=== PATIENT | male | born 1990 | race Caucasian/White ===

== ENCOUNTER 2016-05-14 06:19 | Emergency (ER) | payer SELFPAY ==
[2016-05-14 07:40] LABS: Basophils % (Auto) 0.7 % (0.0-1.8); Hematocrit 49.8 % (35.5-45.6); Hemoglobin 16.8 gm/dl (11.8-15.2); Mean Corpuscular HGB Conc 34 % (32-34); Mean Corpuscular Hemoglobin 32 pg (28-32); Mean Corpuscular Volume 95 fl (84-94); Platelet Count 222 K/mm3 (140-440); Red Blood Count 5.25 M/mm3 (3.65-5.03); Red Cell Distribution Width 13.2 % (13.2-15.2); White Blood Count 8.7 K/mm3 (4.5-11.0)
[2016-05-14 07:51] LABS: Alanine Aminotransferase 22 units/L (7-56); Albumin 4.8 g/dL (3.9-5); Albumin/Globulin Ratio 1.5 %; Alkaline Phosphatase 98 units/L (35-129); Anion Gap 21 mmol/L; Bilirubin,Total 0.4 mg/dL (0.1-1.2); Blood Urea Nitrogen 10 mg/dL (9-20); Calcium 9.1 mg/dL (8.4-10.2); Carbon Dioxide 26 mmol/L (22-30); Chloride 101.2 mmol/L (98-107); Glucose 83 mg/dL (75-100); Lipase 44 units/L (13-60); Potassium 4.7 mmol/L (3.6-5.0); Sodium 143 mmol/L (137-145)
[2016-05-14 08:31] LABS: Bilirubin,Urine NEG (Negative); Blood,Urine SM (Negative); Ketones,Urine TR mg/dL (Negative); Leukocyte Esterase,Urine NEG (Negative); Mucus,Urine 3+ /HPF; Nitrite,Urine NEG (Negative); Protein,Urine <15 mg/dL mg/dL (Negative); Urobilinogen,Urine < 2.0 mg/dL (<2.0)
[2016-05-14] MEDS ORDERED: ULTRAM PO ONE (14:48)
[2016-05-14] MEDS ORDERED: ZOFRAN ODT PO ONE (14:48)
--- NOTE | 2016-05-14 15:08 | Emergency Department Report ---
ED N/V/D HPI - General Chief complaint: Abdominal Pain Stated complaint: SPENSER,VOMITING UP BLOOD, BODY PAIN Time Seen by Provider: 05/14/16 14:32 Source: patient Mode of arrival: Ambulatory Limitations: No Limitations - History of Present Illness Initial comments: 25 yo male with a Past medical history no previous abdominal surgeries presents to the hospital complaining of abdominal pain, nausea, and vomiting. Patient states he has had right lower rib pain that is aching and constant rate is 7/10 in intensity for the past 3 weeks. No aggravating or alleviating factors reported. For the past week patient has had nausea and vomiting. Patient complains of intermittent blood streaks in his vomitus. He denies melena, hematochezia, diarrhea, fevers, recent travel, or sick contacts. Last vomiting episode 8 AM this morning patient has been able to eat or drink since. He denies any current nausea. - Related Data Previous Rx's Medication Instructions Recorded Last Taken Type Azithromycin [Zithromax Z-STAR] 250 mg PO DAILY #6 tablet 03/29/16 Unknown Rx Lansoprazole [Prevacid] 15 mg PO BID #60 cap 05/14/16 Unknown Rx Promethazine [Phenergan TAB] 25 mg PO Q6HR PRN #30 tab 05/14/16 Unknown Rx traMADol [Ultram 50 MG tab] 50 mg PO Q6HR PRN #30 tablet 05/14/16 Unknown Rx Allergies Allergy/AdvReac Type Severity Reaction Status Date / Time No Known Allergies Allergy Verified 02/20/14 21:30 ED Review of Systems ROS: Stated complaint: SPENSER,VOMITING UP BLOOD, BODY PAIN Other details as noted in HPI Comment: All other systems reviewed and negative Other: Constitutional: No fevers chills Eyes: No eye pain visual changes ENT: No ear pain or throat pain Neck: Denies pain Respiratory: Denies cough wheezing shortness of breath Cardiovascular: Denies chest pain, palpitations, syncope GI: As per HPI : Denies dysuria Musculoskeletal: Denies back pain Skin: Denies rash, lesions, erythema Neurologic: Denies headache, numbness, weakness Psychiatric: Denies suicidal ideation, hallucinations Hematological/lymphatic: Denies easy bruising, lymphadenopathy ED Past Medical Hx - Past Medical History Previous Medical History?: No - Surgical History Past Surgical History?: No - Social History Smoking Status: Current Every Day Smoker Substance Use Type: Alcohol - Medications Home Medications: Home Medications Medication Instructions Recorded Confirmed Last Taken Type Azithromycin [Zithromax Z-STAR] 250 mg PO DAILY #6 tablet 03/29/16 Unknown Rx Lansoprazole [Prevacid] 15 mg PO BID #60 cap 05/14/16 Unknown Rx Promethazine [Phenergan TAB] 25 mg PO Q6HR PRN #30 tab 05/14/16 Unknown Rx traMADol [Ultram 50 MG tab] 50 mg PO Q6HR PRN #30 tablet 05/14/16 Unknown Rx ED Physical Exam - General Limitations: No Limitations - Other Other exam information: General: No limitations, patient is alert in no acute distress Head exam: Atraumatic, normocephalic Eyes exam: Normal appearance, pupils equal reactive to light, extraocular movements intact ENT: Moist mucous membrane, normal oropharynx Neck exam: Normal inspection, full range of motion, no meningismus nontender Respiratory exam: Clear to auscultation bilateral, no wheezes, rales, crackles. Mild right lower anterior rib tenderness Cardiovascular: Normal rate and rhythm, normal heart sounds Abdomen: Soft, nondistended, and nontender, with normal bowel sounds, no rebound, or guarding Extremity: Full range of motion normal inspection no deformity Back: Normal Inspection, full range of motion, no tenderness Neurologic: Alert, oriented x3, cranial nerves intact, no motor or sensory deficit Psychiatric: normal affect, normal mood Skin: Warm, dry, intact ED Course Vital Signs 05/14/16 06:37 Temperature 97.8 F Pulse Rate 84 Respiratory 18 Rate Blood Pressure 126/84 O2 Sat by Pulse 100 Oximetry - Reevaluation(s) Reevaluation #1: 05/14/16 15:07 Patient received Zofran and tramadol and tolerated by mouth ED Medical Decision Making - Lab Data Result diagrams: 05/14/16 07:12 05/14/16 07:12 Lab Results 05/14/16 05/14/16 05/14/16 Range/Units 07:12 07:12 07:25 WBC 8.7 (4.5-11.0) K/mm3 RBC 5.25 H (3.65-5.03) M/mm3 Hgb 16.8 H (11.8-15.2) gm/dl Hct 49.8 H (35.5-45.6) % MCV 95 H (84-94) fl MCH 32 (28-32) pg MCHC 34 (32-34) % RDW 13.2 (13.2-15.2) % Plt Count 222 (140-440) K/mm3 Lymph % (Auto) 32.9 (13.4-35.0) % [place] % (Auto) 5.3 (0.0-7.3) % Eos % (Auto) 1.0 (0.0-4.3) % Baso % (Auto) 0.7 (0.0-1.8) % Lymph # 2.9 (1.2-5.4) K/mm3 Craven # 0.5 (0.0-0.8) K/mm3 Eos # 0.1 (0.0-0.4) K/mm3 Baso # 0.1 (0.0-0.1) K/mm3 Seg Neutrophils % 60.1 (40.0-70.0) % Seg Neutrophils # 5.2 (1.8-7.7) K/mm3 Carbon Dioxide 26 (22-30) mmol/L BUN 10 (9-20) mg/dL Creatinine 1.0 (0.8-1.5) mg/dL Estimated GFR > 60 ml/min BUN/Creatinine Ratio 10.00 % Glucose 83 (75-100) mg/dL Calcium 9.1 (8.4-10.2) mg/dL Total Bilirubin 0.4 (0.1-1.2) mg/dL AST 26 (5-40) units/L ALT 22 (7-56) units/L Alkaline Phosphatase 98 (35-129) units/L Total Protein 8.0 (6.3-8.2) g/dL Albumin 4.8 (3.9-5) g/dL Albumin/Globulin Ratio 1.5 % Lipase 44 (13-60) units/L Urine Color Yellow (Yellow) Urine Turbidity Clear (Clear) Urine pH 5.0 (5.0-7.0) Ur Specific Ridge 1.019 (1.003-1.030) Urine Protein <15 mg/dl (Negative) mg/dL Urine Glucose (UA) Neg (Negative) mg/dL Urine Ketones Tr (Negative) mg/dL Urine Blood Sm (Negative) Urine Nitrite Neg (Negative) Urine Bilirubin Neg (Negative) Urine Urobilinogen < 2.0 (<2.0) mg/dL Ur Leukocyte Esterase Neg (Negative) Urine WBC (Auto) 6.0 (0.0-6.0) /HPF Urine RBC (Auto) 4.0 (0.0-6.0) /HPF U Epithel Cells (Auto) < 1.0 (0-13.0) /HPF Hyaline Casts 6 /LPF Urine Mucus 3+ /HPF Sodium 143, potassium 4.7, chloride 101.2 and and 21 - Medical Decision Making Plan to discharge patient home on tramadol, Phenergan, and omeprazole. Patient refused and declined rectal however, no signs of anemia, active bleeding, or cardiac instability. Follow-up will be encouraged - Differential Diagnosis gastritis, gastroenteritis, hepatitis, biliary colic, Nika-Child PUD Critical Care Time: No Critical care attestation.: If time is entered above; I have spent that time in minutes in the direct care of this critically ill patient, excluding procedure time. ED Disposition Clinical Impression: Gastritis Qualifiers: Gastritis type: unspecified gastritis Chronicity: acute Gastritis bleeding: presence of bleeding unspecified Qualified Code(s): K29.00 - Acute gastritis without bleeding Vomiting Qualifiers: Vomiting type: hematemesis Nausea presence: with nausea Qualified Code(s): K92.0 - Hematemesis; R11.0 - Nausea Disposition: DISCHARGED TO HOME OR SELFCARE Is pt being admited?: No Does the pt Need Aspirin: No Condition: Stable Instructions: Gastritis (ED), Acute Nausea and Vomiting (ED) Additional Instructions: Take the medication as prescribed. Follow-up with the clinic provided. Return if symptoms worsen. Prescriptions: Lansoprazole [Prevacid] 15 mg PO BID #60 cap Promethazine [Phenergan TAB] 25 mg PO Q6HR PRN #30 tab PRN Reason: Nausea traMADol [Ultram 50 MG tab] 50 mg PO Q6HR PRN #30 tablet PRN Reason: Pain Referrals: PRIMARY CARE, [Primary Care Provider] - 3-5 Days [facility] [Provider Group] - 3-5 Days Time of Disposition: 15:10
[2016-05-14 15:34] VITALS: BP 126/80
== END 2016-05-14 15:33 | disposition home or self-care (01) ==
LOC: ED 06:19
DX: K29.00 Acute gastritis without bleeding (principal); K92.0 Hematemesis; F17.200 Nicotine dependence, unspecified, uncomplicated
CPT/HCPCS: 36415; 80053; 81001; 83690; 85025; 99283; Q0162

== ENCOUNTER 2016-11-15 13:20 | Emergency (ER) | payer SELFPAY ==
[2016-11-15] MEDS ORDERED: NACL 0.9% 1000 ML 1,000 ML IV ONE (15:07)
[2016-11-15 15:38] LABS: Basophils % (Auto) 0.4 % (0.0-1.8); Eosinophils % (Auto) 0.6 % (0.0-4.3); Hematocrit 45.5 % (35.5-45.6); Hemoglobin 15.7 gm/dl (11.8-15.2); Mean Corpuscular HGB Conc 35 % (32-34); Mean Corpuscular Hemoglobin 33 pg (28-32); Mean Corpuscular Volume 96 fl (84-94); Platelet Count 215 K/mm3 (140-440); Red Blood Count 4.73 M/mm3 (3.65-5.03); Red Cell Distribution Width 13.8 % (13.2-15.2); White Blood Count 8.8 K/mm3 (4.5-11.0)
[2016-11-15 15:48] LABS: INR 1.13 (0.87-1.13)
[2016-11-15 15:55] LABS: Alanine Aminotransferase 27 units/L (7-56); Albumin 4.5 g/dL (3.9-5); Albumin/Globulin Ratio 1.4 %; Alkaline Phosphatase 77 units/L (35-129); Anion Gap 20 mmol/L; BUN/Creatinine Ratio 13.33; Blood Urea Nitrogen 12 mg/dL (9-20); Calcium 9.9 mg/dL (8.4-10.2); Carbon Dioxide 27 mmol/L (22-30); Chloride 100.3 mmol/L (98-107); Glucose 86 mg/dL (75-100); Lipase 34 units/L (13-60); Potassium 4.5 mmol/L (3.6-5.0); Sodium 143 mmol/L (137-145); Total Protein 7.8 g/dL (6.3-8.2)
--- NOTE | 2016-11-15 22:26 | Cat Scan Report ---
FINAL REPORT EXAM: CT HEAD/BRAIN WO CON HISTORY: head injury slipped and fell backwards TECHNIQUE: CT imaging acquired through the head without intravenous contrast. Transaxial reformations are provided. PRIORS: None. FINDINGS: The ventricles, cisterns and sulci are normal. There is confluent white matter disease in the anterior right temporal and right frontal lobes. No intraparenchymal or extra-axial mass, hemorrhage, or mass effect. Hitchcock and white-matter differentiation is normal. Normal spherical shape of the globes. Paranasal sinuses and mastoid air cells are clear. No skull or facial fracture visualized. IMPRESSION: No acute intracranial hemorrhage or mass effect. Right frontal and temporal white matter disease is concerning for infectious or vascular insult to include herpes encephalitis and CADASIL, among other etiologies. Consider empiric antiviral treatment as warranted. Follow-up neurology consultation and MRI with contrast are recommended. Dr. Esteban discussed findings with Dr. Taylor at [address] [employer] [employer] following the examination.
[2016-11-15 23:21] VITALS: BP 152/89
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
== END 2016-11-16 00:21 | disposition home or self-care (01) ==
LOC: ED 13:20
DX: K29.70 Gastritis, unspecified, without bleeding (principal); R51 Headache; F17.210 Nicotine dependence, cigarettes, uncomplicated
CPT/HCPCS: 36415; 70450; 80053; 83690; 85025; 85610; 85730; 86850; 86900; 86901; 93005; 93010; 99284

== ENCOUNTER 2017-12-02 02:46 | Emergency (ER) | payer SELFPAY | END 2017-12-02 02:48 | disposition left against medical advice (07) | LOC: ED 02:46 | DX: Z00.8 Encounter for other general examination (principal); Z53.21 Procedure and treatment not carried out due to patient leaving prior to being seen by health care provider ==

== ENCOUNTER 2021-02-23 09:46 | Emergency (ER) | payer SELFPAY ==
[2021-02-23 10:55] LABS: Amphetamine Screen,Urine Negative; Benzodiazepines Screen,Urine Negative; Cannabinoid Screen,Urine Negative; Cocaine Screen,Urine Negative; Methadone Screen,Urine Negative; Opiate Screen,Urine Negative
[2021-02-23 11:19] LABS: Basophils % (Auto) 0.9 % (0.0-1.8); Eosinophils % (Auto) 0.9 % (0.0-4.3); Hematocrit 47.4 % (35.5-45.6); Hemoglobin 16.1 gm/dl (11.8-15.2); Lymphocytes % (Auto) 21.8 % (13.4-35.0); Mean Corpuscular HGB Conc 34 % (32-34); Mean Corpuscular Volume 99 fl (84-94); Monocytes # (Auto) 0.4 K/mm3 (0.0-0.8); Platelet Count 170 K/mm3 (140-440); Red Blood Count 4.79 M/mm3 (3.65-5.03); Red Cell Distribution Width 13.3 % (13.2-15.2)
--- NOTE | 2021-02-23 11:21 | XRay Report ---
CHEST PA AND LATERAL VIEWS INDICATION: Chest Pain. COMPARISON: 02/21/2014 FINDINGS: Support devices: None. Heart: Within normal limits. Lungs/Pleura: No acute pulmonary or pleural findings. IMPRESSION: 1. No acute findings. Signer Name: Ren Fry MD Signed: 02/23/2021 11:17 AM Workstation Name: [id number]
[2021-02-23 11:26] LABS: Alanine Aminotransferase 53 units/L (7-56); Albumin 4.3 g/dL (3.9-5); BUN/Creatinine Ratio 4; Blood Urea Nitrogen 4 mg/dL (9-20); Calcium 9.3 mg/dL (8.4-10.2); Hemolysis Index 13
--- NOTE | 2021-02-23 11:57 | Emergency Department Report ---
ED Chest Pain HPI - General Chief Complaint: Chest Pain Stated Complaint: CHEST PAIN PUI?: Yes Time Seen by Provider: 02/23/21 10:03 Source: patient Mode of arrival: Ambulatory Limitations: No Limitations - History of Present Illness Initial Comments: The patient was evaluated in the emergency department for symptoms described in the history of present illness. He/she was evaluated in the context of the global COVID-19 pandemic, which necessitated consideration that the patient might be at risk for infection with the virus that causes COVID-19. Institutional protocols and algorithms that pertain to the evaluation of pat ients at risk for COVID-19 are in a state of rapid change based on information released by regulatory bodies including the CDC and federal and state organizations. These policies and algorithms were followed during the patient's care in the emergency department. Please note that these policies, procedures and recommendations changed on a rapid basis. 30-year-old male presents to the emergency room complaining of vomiting x2 days. Patient states he had chest pain that started last night and a dry cough. He reports his pain is midsternal and epigastric. He admits to a dry cough but denies any sick contact. Patient states that the chest pain started after he is has been vomiting. He has tested Covid -3 weeks ago but is not vaccinated. He denies any diarrhea no past medical history no family history of any cardiac deaths does not smoke weed does only social drinking and smokes occasionally. Patient states that he had chest pain that started 1 hour ago last vomited last night. -: Last night Onset: other (After vomiting) Pain Location: substernal, left chest, right chest Pain Radiation: none Severity: mild Quality: aching Consistency: constant Improves With: nothing Worsens With: other (Vomiting) re: nausea, vomting Other Symptoms: cough Treatments Prior to Arrival: none Aspirin use within the Past 7 Days: (0) No - Related Data Previous Rx's Medication Instructions Recorded Last Taken Type Acyclovir [Zovirax Tab] 800 mg PO Q12H #14 tab 11/16/16 Unknown Rx Benzonatate [Tessalon Perles] 100 mg PO Q8HR #20 capsule 11/16/16 Unknown Rx Omeprazole 40 mg PO DAILY #30 capsule. 11/16/16 Unknown Rx Allergies Allergy/AdvReac Type Severity Reaction Status Date / Time No Known Allergies Allergy Verified 02/23/21 09:53 Heart Score - HEART Score History: Slightly suspicious EKG: Normal Age: < 45 Risk factors: No known risk factors Troponin: < normal limit HEART Score: 0 - EKG Read Time Time EKG Completed: 10:10 EKG Read Time: 10:15 ED Review of Systems ROS: Stated complaint: CHEST PAIN Other details as noted in HPI ED Past Medical Hx - Social History Smoking Status: Current Every Day Smoker Substance Use Type: Alcohol, Non Opiate Pain - Medications Home Medications: Home Medications Medication Instructions Recorded Confirmed Last Taken Type Acyclovir [Zovirax Tab] 800 mg PO Q12H #14 tab 11/16/16 Unknown Rx Benzonatate [Tessalon Perles] 100 mg PO Q8HR #20 capsule 11/16/16 Unknown Rx Omeprazole 40 mg PO DAILY #30 capsule. 11/16/16 Unknown Rx ED Physical Exam - General Limitations: No Limitations General appearance: alert, in no apparent distress - Head Head exam: Present: atraumatic, normocephalic - Eye Eye exam: Present: normal appearance - ENT ENT exam: Present: mucous membranes moist - Neck Neck exam: Present: normal inspection - Respiratory Respiratory exam: Present: normal lung sounds bilaterally. Absent: respiratory distress - Cardiovascular Cardiovascular Exam: Present: regular rate, normal rhythm. Absent: systolic murmur, diastolic murmur, rubs, gallop - GI/Abdominal GI/Abdominal exam: Present: soft, tenderness (Epigastric, midsternal), normal bowel sounds - Rectal Rectal exam: Present: deferred - Extremities Exam Extremities exam: Present: normal inspection - Back Exam Back exam: Present: normal inspection - Neurological Exam Neurological exam: Present: alert, oriented X3 - Psychiatric Psychiatric exam: Present: normal affect, normal mood - Skin Skin exam: Present: warm, dry, intact, normal color. Absent: rash ED Course Vital Signs 02/23/21 02/23/21 02/23/21 10:07 12:14 12:15 Temperature 98.1 F Pulse Rate 93 H 78 72 Respiratory 16 16 Rate Blood Pressure 151/99 Blood Pressure 151/99 [Left] O2 Sat by Pulse 97 98 99 Oximetry MANGO score - Mango Score Age > 65: (0) No Aspirin use within the Past 7 Days: (0) No 3 or more CAD Risk Factors: (0) No 2 or more Angina events in past 24 hrs: (0) No Known CAD with more than 50% Stenosis: (0) No Elevated Cardiac Markers: (0) No ST Deviation Greater than 0.5mm: (0) No MANGO Score: 0 ED Medical Decision Making - Lab Data Result diagrams: 02/23/21 10:44 02/23/21 10:44 Laboratory Results - last 72 hr 02/23/21 02/23/21 02/23/21 10:44 10:44 Unknown WBC 4.4 L RBC 4.79 Hgb 16.1 H Hct 47.4 H MCV 99 H MCH 34 H MCHC 34 RDW 13.3 Plt Count 170 Lymph % (Auto) 21.8 [place] % (Auto) 9.0 H Eos % (Auto) 0.9 Baso % (Auto) 0.9 Lymph # (Auto) 1.0 L [place] # (Auto) 0.4 Eos # (Auto) 0.0 Baso # (Auto) 0.0 Seg Neutrophils % 67.4 Seg Neutrophils # 3.0 Sodium 140 Potassium 4.8 Chloride 100.3 Carbon Dioxide 26 Anion Gap 19 BUN 4 L Creatinine 0.9 Estimated GFR > 60 BUN/Creatinine Ratio 4 Glucose 101 H Calcium 9.3 Total Bilirubin 0.60 AST 70 H ALT 53 Alkaline Phosphatase 104 Troponin T < 0.010 Total Protein 7.3 Albumin 4.3 Albumin/Globulin Ratio 1.4 Lipase 102 H Urine Opiates Screen Negative Urine Methadone Screen Negative Ur Barbiturates Screen Negative Ur Phencyclidine Scrn Negative Ur Amphetamines Screen Negative U Benzodiazepines Scrn Negative Urine Cocaine Screen Negative U Marijuana (THC) Screen Negative Drugs of Abuse Note Disclamer - Medical Decision Making 30-year-old male presents to the emergency room complaining of vomiting x2 days. Patient states he had chest pain that started last night and a dry cough. He reports his pain is midsternal and epigastric. He admits to a dry cough but denies any sick contact. Patient states that the chest pain started after he is has been vomiting. He has tested Covid -3 weeks ago but is not vaccinated. He denies any diarrhea no past medical history no family history of any cardiac deaths does not smoke weed does only social drinking and smokes occasionally. Patient states that he had chest pain that started 1 hour ago last vomited last night. CBC CMP EKG chest x-ray lipase UDS troponin. Lipase came back elevated 102 with the elevated AST which is very common in alcoholism. Discussed with patient my findings and suggest that he drinks more than just occasionally. Patient does admit at that time that he drinks daily. Also discussed with patient that he needs to decrease his alcohol consumption increase his fluid intake. Patient was given 1 L of fluid and Zofran. Patient is asking for a work excuse. Critical care attestation.: If time is entered above; I have spent that time in minutes in the direct care of this critically ill patient, excluding procedure time. ED Disposition Clinical Impression: Acute alcoholic pancreatitis Disposition: 01 HOME / SELF CARE / HOMELESS Is pt being admited?: No Does the pt Need Aspirin: No Condition: Stable Instructions: Acute Pancreatitis, [id number] Additional Instructions: Please decrease your alcohol consumption as this is what is causing your epigastric pain. It also causes nausea and vomiting. You need to increase your fluid intake. Referrals: PRIMARY CARE, [Primary Care Provider] - 3-5 Days [facility] [Provider Group] - 3-5 Days Forms: Work/School Release Form(ED) Time of Disposition: 12:57
[2021-02-23] MEDS ORDERED: ONDANSETRON 4 MG/2 ML INJ IV ONE (11:58)
[2021-02-23] MEDS ORDERED: SODIUM CHLORIDE 0.9% 1000 ML 1,000 ML IV ONE (11:58)
[2021-02-23 12:15] VITALS: BP 151/99
--- NOTE | 2021-02-23 17:50 | Electrocardiograph Report ---
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
== END 2021-02-23 13:32 | disposition home or self-care (01) ==
LOC: ED 09:46
DX: K85.20 Alcohol induced acute pancreatitis without necrosis or infection (principal); F17.200 Nicotine dependence, unspecified, uncomplicated
CPT/HCPCS: 36415; 71046; 80053; 80307; 83690; 84484; 85025; 93005; 96361; 96374; 99284; J2405; J7030

== ENCOUNTER 2022-01-06 17:35 | Emergency (ER) | payer SELFPAY ==
[2022-01-06 18:13] VITALS: BP 142/91
[2022-01-06] MEDS ORDERED: TETANUS,DIPH,PERTUSS(ACELL) VACCINE 0.5 ML SYRINGE IM ONE (19:40)
[2022-01-06] MEDS ORDERED: oxyCODONE /ACETAMINOPHEN 5-325MG TAB PO ONE (19:40)
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
[2022-01-06] MEDS ORDERED: SODIUM CHLORIDE 0.9% 1000 ML 1,000 ML IV ONE (20:39)
== END 2022-01-06 21:00 | disposition left against medical advice (07) ==
LOC: ED 17:35
DX: S05.30XA Ocular laceration without prolapse or loss of intraocular tissue, unspecified eye, initial encounter (principal); Z53.21 Procedure and treatment not carried out due to patient leaving prior to being seen by health care provider; X58.XXXA Exposure to other specified factors, initial encounter; Y93.89 Activity, other specified; Y92.89 Other specified places as the place of occurrence of the external cause; Y99.8 Other external cause status
CPT/HCPCS: 70450; 70486; 90715